=== PATIENT | female | born 1935 | race Caucasian/White ===

== ENCOUNTER 2016-11-28 15:03 | Outpatient (CLI) | payer MEDICARE | END 2016-11-28 15:04 | disposition home or self-care (01) | DX: Z12.31 Encounter for screening mammogram for malignant neoplasm of breast (principal); Z85.3 Personal history of malignant neoplasm of breast; Z80.3 Family history of malignant neoplasm of breast ==

== ENCOUNTER 2016-12-12 07:46 | Outpatient (CLI) | payer MEDICARE | END 2016-12-12 07:47 | disposition home or self-care (01) | DX: I10 Essential (primary) hypertension (principal); E78.5 Hyperlipidemia, unspecified; E11.8 Type 2 diabetes mellitus with unspecified complications ==

== ENCOUNTER 2016-12-22 07:24 | Outpatient (CLI) | payer MEDICARE | END 2016-12-22 07:25 | disposition home or self-care (01) | DX: K76.0 Fatty (change of) liver, not elsewhere classified (principal); R93.8 Abnormal findings on diagnostic imaging of other specified body structures; R74.8 Abnormal levels of other serum enzymes ==

== ENCOUNTER 2017-01-12 14:48 | Outpatient (CLI) | payer MEDICARE ==
[2017-01-12] MEDS ORDERED: IOPAMIDOL-300 50 ML VIAL PO ONE (17:24)
[2017-01-12] MEDS ORDERED: IOPAMIDOL-300 100 ML VIAL IVP ONE (17:24)
== END 2017-01-12 14:49 | disposition home or self-care (01) ==
DX: N28.1 Cyst of kidney, acquired (principal); K76.0 Fatty (change of) liver, not elsewhere classified
CPT/HCPCS: 74178; Q9967

== ENCOUNTER 2017-05-29 07:31 | Outpatient (CLI) | payer MEDICARE ==
[2017-05-29 16:14] LABS: ALBUMIN/GLOBULIN RATIO 1.2 (1.0-2.2); BILIRUBIN,TOTAL 0.5 mg/dL (0.2-1.0); BUN - BLOOD UREA NITROGEN 15 mg/dL (6-20); CALCIUM 8.7 mg/dL (8.5-10.3); CARBON DIOXIDE - CO2 29 mmol/L (21-32); CHLORIDE 96 mmol/L (101-111); CHOL/HDL RATIO 2.3 (<4.4); CHOLESTEROL 133 mg/dL; CREATININE 0.9 mg/dL (0.4-1.0); GFR - MDRD 60 (>89); GLUCOSE 96 mg/dL (70-100); HDL CHOLESTEROL 58 mg/dL; POTASSIUM 3.9 mmol/L (3.5-5.0); SODIUM 132 mmol/L (135-145); TOTAL PROTEIN 6.7 g/dL (6.7-8.2); TRIGLYCERIDES 83 mg/dL; VLDL CHOLESTEROL 17 mg/dL
[2017-05-29 16:45] LABS: HEMOGLOBIN A1C 0.58 g/dL
== END 2017-05-29 07:32 | disposition home or self-care (01) ==
LOC: LAB.WCP 07:31
PROVIDERS: ATTEND Family Medicine
DX: R74.8 Abnormal levels of other serum enzymes (principal); E78.5 Hyperlipidemia, unspecified; I10 Essential (primary) hypertension
CPT/HCPCS: 36415; 80053; 80061; 83036

== ENCOUNTER 2017-11-22 14:46 | Outpatient (CLI) | payer MEDICARE ==
[2017-11-22 13:44] LABS: EOSINOPHILS # (AUTO) 0.1 10^3/uL (0.0-0.7); EOSINOPHILS % (AUTO) 3.3 %; HGB - HEMOGLOBIN 12.4 g/dL (12.0-16.0); LYMPHOCYTES # (AUTO) 1.4 10^3/uL (1.5-3.5); LYMPHOCYTES % (AUTO) 31.9 %; MEAN CORPUSCULAR HGB CONC 33.8 g/dL (32.0-36.0); MEAN CORPUSCULAR VOLUME 88.8 fL (81.0-99.0); MEAN PLATELET VOLUME 8.1 fL (7.9-10.8); MONOCYTES # (AUTO) 0.6 10^3/uL (0.0-1.0); MONOCYTES % (AUTO) 12.6 %; NEUTROPHILS # (AUTO) 2.3 10^3/uL (1.5-6.6); NEUTROPHILS % (AUTO) 51.2 %; PLT - PLATELET COUNT 278 10^3/uL (130-450); RED BLOOD COUNT 4.11 10^6/uL (4.20-5.40); WHITE BLOOD COUNT 4.4 x10^3/uL (4.8-10.8)
[2017-11-22 14:19] LABS: THYROID STIMULATING HORMONE 6.61 uIU/mL (0.34-5.60)
[2017-11-22 14:24] LABS: ALBUMIN 3.7 g/dL (3.2-5.5); ALBUMIN/GLOBULIN RATIO 1.2 (1.0-2.2); ALKALINE PHOSPHATASE 62 IU/L (42-121); ALT ALANINE AMINOTRANSFERASE 69 IU/L (10-60); AST ASPARTATE AMINOTRANSFERASE 45 IU/L (10-42); BILIRUBIN,TOTAL 0.4 mg/dL (0.2-1.0); BUN - BLOOD UREA NITROGEN 18 mg/dL (6-20); CALCIUM 8.9 mg/dL (8.5-10.3); CARBON DIOXIDE - CO2 29 mmol/L (21-32); CHLORIDE 96 mmol/L (101-111); CHOL/HDL RATIO 4.1 (<4.4); CHOLESTEROL 256 mg/dL; CREATININE 0.9 mg/dL (0.4-1.0); GFR - MDRD 60 (>89); GLUCOSE 93 mg/dL (70-100); HDL CHOLESTEROL 62 mg/dL; LDL CHOLESTEROL,CALCULATED 168 mg/dL; LDL/HDL RATIO 2.7 (<4.4); SODIUM 132 mmol/L (135-145); TOTAL PROTEIN 6.8 g/dL (6.7-8.2); VLDL CHOLESTEROL 26 mg/dL
[2017-11-22 15:16] LABS: FREE T4 (FREE THYROXINE) 0.79 ng/dL (0.58-1.64)
[2017-11-22 16:36] LABS: HEMOGLOBIN A1C 0.6 g/dL; HEMOGLOBIN A1C % 6.4 % (4.6-6.2)
== END 2017-11-22 14:47 | disposition home or self-care (01) ==
LOC: LAB.WCP 14:46
PROVIDERS: ATTEND Family Medicine
DX: E78.5 Hyperlipidemia, unspecified (principal); I10 Essential (primary) hypertension
CPT/HCPCS: 36415; 80053; 80061; 83036; 84439; 84443; 85025

== ENCOUNTER 2017-12-26 09:55 | Outpatient (CLI) | payer MEDICARE ==
--- NOTE | 2017-12-27 17:26 | Mammography Report ---
DIGITAL SCREENING MAMMOGRAM: 12/26/2017 CLINICAL INDICATION: An 82-year-old with history of late childbearing, family history of breast cancer, personal history of left breast cancer, status post lumpectomy. COMPARISON: 11/2016, 04/2015, 08/2014, 02/2014, 07/2013, 01/2013, 07/2012, 11/2011, 04/2011. TECHNIQUE: Routine CC and MLO projections were obtained of the breasts. FINDINGS: The breasts demonstrate scattered fibroglandular densities bilaterally. Postoperative and posttreatment changes in the left breast are stable. No suspicious masses, clustered microcalcifications, or regions of architectural distortion are identified. Coarse, typically benign calcifications are present. IMPRESSION: BENIGN FINDINGS. RECOMMENDATION: ROUTINE ANNUAL SCREENING UNLESS OTHERWISE CLINICALLY INDICATED. BIRADS CATEGORY 2-BENIGN FINDINGS. STANDARD QUALIFYING STATEMENTS: 1. This examination was reviewed with the aid of Computer-Aided Detection (CAD). 2. A negative or benign imaging report should not delay biopsy if clinically suspicious findings are present. Consider surgical consultation if warranted. More than 5% of cancers are not identified by imaging. 3. Dense breasts may obscure an underlying neoplasm. TD: 12/27/2017 17:25
== END 2017-12-26 09:56 | disposition home or self-care (01) ==
LOC: DI 09:55
PROVIDERS: ATTEND Family Medicine
DX: Z12.31 Encounter for screening mammogram for malignant neoplasm of breast (principal); Z85.3 Personal history of malignant neoplasm of breast; Z80.3 Family history of malignant neoplasm of breast
CPT/HCPCS: 77067

== ENCOUNTER 2018-02-19 07:58 | Outpatient (CLI) | payer MEDICARE ==
[2018-02-19 12:58] LABS: THYROID STIMULATING HORMONE 6.58 uIU/mL (0.34-5.60)
[2018-02-19 13:01] LABS: % IRON SATURATION 17 % (20-50); ALBUMIN 3.7 g/dL (3.2-5.5); ALKALINE PHOSPHATASE 61 IU/L (42-121); ALT ALANINE AMINOTRANSFERASE 62 IU/L (10-60); AST ASPARTATE AMINOTRANSFERASE 38 IU/L (10-42); BILIRUBIN,TOTAL 0.5 mg/dL (0.2-1.0); BUN - BLOOD UREA NITROGEN 11 mg/dL (6-20); CALCIUM 8.9 mg/dL (8.5-10.3); CARBON DIOXIDE - CO2 28 mmol/L (21-32); CHLORIDE 96 mmol/L (101-111); CREATININE 0.7 mg/dL (0.4-1.0); GFR - MDRD 80 (>89); GLUCOSE 83 mg/dL (70-100); IRON 61 ug/dL (28-170); SODIUM 132 mmol/L (135-145); TOTAL IRON BINDING CAPACITY 349 ug/dL (250-450); TOTAL PROTEIN 7.3 g/dL (6.7-8.2); TRANSFERRIN 249 mg/dL (192-382)
[2018-02-19 13:15] LABS: HB2 TOTAL 13.4 g/dL; HEMOGLOBIN A1C 0.6 g/dL; HEMOGLOBIN A1C % 6.2 % (4.6-6.2)
[2018-02-19 14:05] LABS: FREE T4 (FREE THYROXINE) 0.86 ng/dL (0.58-1.64)
[2018-02-20 12:54] LABS: HEPATITIS C ANTIBODY NON-REACTIVE (NON-REACTIVE)
== END 2018-02-19 07:59 | disposition home or self-care (01) ==
LOC: LAB.WCP 07:58
PROVIDERS: ATTEND Family Medicine
DX: R74.8 Abnormal levels of other serum enzymes (principal); I10 Essential (primary) hypertension; E11.9 Type 2 diabetes mellitus without complications; E03.9 Hypothyroidism, unspecified
CPT/HCPCS: 36415; 80053; 83036; 83540; 84439; 84443; 84466; 86317; 86803

== ENCOUNTER 2018-10-08 07:49 | Outpatient (CLI) | payer MEDICARE ==
[2018-10-08 16:41] LABS: BASOPHILS % (AUTO) 0.9 %; EOSINOPHILS # (AUTO) 0.1 10^3/uL (0.0-0.7); EOSINOPHILS % (AUTO) 2.4 %; HGB - HEMOGLOBIN 12.7 g/dL (12.0-16.0); LYMPHOCYTES # (AUTO) 1.1 10^3/uL (1.5-3.5); LYMPHOCYTES % (AUTO) 33.6 %; MEAN CORPUSCULAR HEMOGLOBIN 29.9 pg (27.0-31.0); MEAN CORPUSCULAR HGB CONC 33.3 g/dL (32.0-36.0); MEAN CORPUSCULAR VOLUME 89.8 fL (81.0-99.0); MONOCYTES # (AUTO) 0.6 10^3/uL (0.0-1.0); MONOCYTES % (AUTO) 17.2 %; NEUTROPHILS # (AUTO) 1.5 10^3/uL (1.5-6.6); NEUTROPHILS % (AUTO) 45.9 %; PLT - PLATELET COUNT 268 10^3/uL (130-450); RED BLOOD COUNT 4.26 10^6/uL (4.20-5.40); RED CELL DISTRIBUTION WIDTH 14.6 % (12.0-15.0); WHITE BLOOD COUNT 3.4 x10^3/uL (4.8-10.8)
[2018-10-08 16:55] LABS: ALBUMIN 3.9 g/dL (3.2-5.5); ALBUMIN/GLOBULIN RATIO 1.1 (1.0-2.2); ALKALINE PHOSPHATASE 69 IU/L (42-121); ALT ALANINE AMINOTRANSFERASE 51 IU/L (10-60); AST ASPARTATE AMINOTRANSFERASE 37 IU/L (10-42); BILIRUBIN,TOTAL 0.7 mg/dL (0.2-1.0); BUN - BLOOD UREA NITROGEN 12 mg/dL (6-20); CALCIUM 8.9 mg/dL (8.5-10.3); CARBON DIOXIDE - CO2 29 mmol/L (21-32); CHLORIDE 95 mmol/L (101-111); CHOL/HDL RATIO 4.7 (<4.4); CHOLESTEROL 255 mg/dL; CREATININE 0.8 mg/dL (0.4-1.0); GFR - MDRD 68 (>89); GLUCOSE 115 mg/dL (70-100); HDL CHOLESTEROL 54 mg/dL; LDL CHOLESTEROL,CALCULATED 174 mg/dL; LDL/HDL RATIO 3.2 (<4.4); SODIUM 128 mmol/L (135-145); TOTAL PROTEIN 7.4 g/dL (6.7-8.2); VLDL CHOLESTEROL 27 mg/dL
[2018-10-08 17:09] LABS: HB2 TOTAL 13.5 g/dL; HEMOGLOBIN A1C 0.73 g/dL; HEMOGLOBIN A1C % 7.1 % (4.6-6.2)
== END 2018-10-08 23:59 | disposition home or self-care (01) ==
LOC: LAB.WCP 07:49
PROVIDERS: ATTEND Family Medicine
DX: E78.5 Hyperlipidemia, unspecified (principal); E11.9 Type 2 diabetes mellitus without complications; E03.9 Hypothyroidism, unspecified; I10 Essential (primary) hypertension
CPT/HCPCS: 36415; 80053; 80061; 83036; 83721; 84443; 85025

== ENCOUNTER 2018-11-06 09:39 | Outpatient (CLI) | payer MEDICARE ==
[2018-11-06 13:09] LABS: CALCIUM 8.9 mg/dL (8.5-10.3); CREATININE 0.8 mg/dL (0.4-1.0)
== END 2018-11-06 23:59 | disposition home or self-care (01) ==
LOC: LAB.WCP 09:39
PROVIDERS: ATTEND Family Medicine
DX: E87.1 Hypo-osmolality and hyponatremia (principal)
CPT/HCPCS: 36415; 80048

== ENCOUNTER 2019-02-04 08:00 | Outpatient (CLI) | payer MEDICARE ==
[2019-02-04 13:57] LABS: BASOPHILS % (AUTO) 1.2 %; EOSINOPHILS # (AUTO) 0.1 10^3/uL (0.0-0.7); EOSINOPHILS % (AUTO) 2.1 %; HGB - HEMOGLOBIN 12.5 g/dL (12.0-16.0); LYMPHOCYTES # (AUTO) 1.1 10^3/uL (1.5-3.5); LYMPHOCYTES % (AUTO) 31.3 %; MEAN CORPUSCULAR HEMOGLOBIN 30.4 pg (27.0-31.0); MEAN CORPUSCULAR HGB CONC 34.5 g/dL (32.0-36.0); MEAN PLATELET VOLUME 8.1 fL (7.9-10.8); MONOCYTES # (AUTO) 0.6 10^3/uL (0.0-1.0); MONOCYTES % (AUTO) 18.3 %; NEUTROPHILS # (AUTO) 1.6 10^3/uL (1.5-6.6); NEUTROPHILS % (AUTO) 47.1 %; PLT - PLATELET COUNT 249 10^3/uL (130-450); RED BLOOD COUNT 4.11 10^6/uL (4.20-5.40); RED CELL DISTRIBUTION WIDTH 14.9 % (12.0-15.0); WHITE BLOOD COUNT 3.5 x10^3/uL (4.8-10.8)
[2019-02-04 14:18] LABS: ALBUMIN 3.5 g/dL (3.2-5.5); ALKALINE PHOSPHATASE 64 IU/L (42-121); ALT ALANINE AMINOTRANSFERASE 42 IU/L (10-60); AST ASPARTATE AMINOTRANSFERASE 30 IU/L (10-42); BILIRUBIN,TOTAL 0.4 mg/dL (0.2-1.0); BUN - BLOOD UREA NITROGEN 15 mg/dL (6-20); CALCIUM 8.8 mg/dL (8.5-10.3); CARBON DIOXIDE - CO2 28 mmol/L (21-32); CHLORIDE 95 mmol/L (101-111); CHOLESTEROL 257 mg/dL; CREATININE 0.9 mg/dL (0.4-1.0); GFR - MDRD 60 (>89); GLUCOSE 109 mg/dL (70-100); HDL CHOLESTEROL 51 mg/dL; LDL CHOLESTEROL,CALCULATED 186 mg/dL; LDL/HDL RATIO 3.6 (<4.4); SODIUM 130 mmol/L (135-145); TOTAL PROTEIN 7.1 g/dL (6.7-8.2); VLDL CHOLESTEROL 20 mg/dL
[2019-02-04 14:54] LABS: HEMOGLOBIN A1C 0.71 g/dL; HEMOGLOBIN A1C % 7.1 % (4.6-6.2)
== END 2019-02-04 23:59 | disposition home or self-care (01) ==
LOC: LAB.WCP 08:00
PROVIDERS: ATTEND Family Medicine
DX: E78.5 Hyperlipidemia, unspecified (principal); E11.9 Type 2 diabetes mellitus without complications; E03.9 Hypothyroidism, unspecified; I10 Essential (primary) hypertension
CPT/HCPCS: 36415; 80053; 80061; 83036; 83721; 84443; 85025

== ENCOUNTER 2019-04-25 08:00 | Outpatient (CLI) | payer MEDICARE ==
[2019-04-25 12:45] LABS: BASOPHILS # (AUTO) 0.1 10^3/uL (0.0-0.1); BASOPHILS % (AUTO) 1.8 %; EOSINOPHILS # (AUTO) 0.1 10^3/uL (0.0-0.7); EOSINOPHILS % (AUTO) 1.8 %; HGB - HEMOGLOBIN 12.5 g/dL (12.0-16.0); LYMPHOCYTES # (AUTO) 1.2 10^3/uL (1.5-3.5); LYMPHOCYTES % (AUTO) 30.6 %; MEAN CORPUSCULAR HEMOGLOBIN 29.8 pg (27.0-31.0); MEAN CORPUSCULAR HGB CONC 33.2 g/dL (32.0-36.0); MEAN CORPUSCULAR VOLUME 89.8 fL (81.0-99.0); MEAN PLATELET VOLUME 8.4 fL (7.9-10.8); MONOCYTES # (AUTO) 0.5 10^3/uL (0.0-1.0); MONOCYTES % (AUTO) 12.8 %; NEUTROPHILS # (AUTO) 2.1 10^3/uL (1.5-6.6); PLT - PLATELET COUNT 238 10^3/uL (130-450); RED BLOOD COUNT 4.21 10^6/uL (4.20-5.40); RED CELL DISTRIBUTION WIDTH 14.3 % (12.0-15.0)
[2019-04-25 13:22] LABS: ALBUMIN 3.6 g/dL (3.2-5.5); ALKALINE PHOSPHATASE 59 IU/L (42-121); ALT ALANINE AMINOTRANSFERASE 33 IU/L (10-60); AST ASPARTATE AMINOTRANSFERASE 26 IU/L (10-42); BILIRUBIN,TOTAL 0.6 mg/dL (0.2-1.0); BUN - BLOOD UREA NITROGEN 22 mg/dL (6-20); CALCIUM 9.1 mg/dL (8.5-10.3); CARBON DIOXIDE - CO2 27 mmol/L (21-32); CHLORIDE 100 mmol/L (101-111); CHOL/HDL RATIO 4.6 (<4.4); CHOLESTEROL 233 mg/dL; CREATININE 0.9 mg/dL (0.4-1.0); GFR - MDRD 60 (>89); GLUCOSE 116 mg/dL (70-100); HDL CHOLESTEROL 51 mg/dL; LDL CHOLESTEROL,CALCULATED 158 mg/dL; LDL/HDL RATIO 3.1 (<4.4); SODIUM 136 mmol/L (135-145); TOTAL PROTEIN 7.2 g/dL (6.7-8.2); VLDL CHOLESTEROL 24 mg/dL
== END 2019-04-25 08:01 | disposition home or self-care (01) ==
LOC: LAB.WCP 08:00
PROVIDERS: ATTEND Family Medicine
DX: E87.1 Hypo-osmolality and hyponatremia (principal); E78.5 Hyperlipidemia, unspecified; I10 Essential (primary) hypertension
CPT/HCPCS: 36415; 80053; 80061; 83721; 85025

== ENCOUNTER 2021-01-05 09:46 | Outpatient (CLI) | payer MEDICARE ==
--- NOTE | 2021-01-07 16:47 | Mammography Report ---
BILATERAL DIGITAL DIAGNOSTIC MAMMOGRAM 3D/2D: 01/05/2021 CLINICAL: Left breast infection. Routine screening, personal history of left breast cancer. Comparison is made to exams dated: 12/26/2017 mammogram, 11/28/2016 mammogram, 04/22/2015 mammogram, 09/11 mammogram, 03/18/2014 mammogram, and 07/30/2013 mammogram - [facility]. The ti ssue of both breasts is predominantly fatty. There are benign calcifications in both breasts. There also are benign post operative findings in th e left breast. There is a mole marker in the left breast at 7 o'clock posterior depth at a site of a superficial ski n lesion. No other significant masses, calcifications, or other findings are seen in either breast. IMPRESSION: INCOMPLETE: NEEDS ADDITIONAL IMAGING EVALUATION Recommend US. US will be performed and dictated separately. This exam was interpreted at Station ID: [id number]. NOTE: For mammograms, a report in lay terms will be sent to the patient. Approximately 15% of breast malignancies will not be visualized mammographically. In the management of a palpable breast mass, a negative mammogram must not discourage biopsy of a clinically suspicious lesion. Electronically Signed By: Brenden Castorena acr/:01/05/2021 11:52:27 ACR BI-RADS Category 0: Incomplete 3340F PARENCHYMAL PATTERN: (F) - The breast(s) demonstrate(s) diffuse fatty replacement. BI-RADS CATEGORY: (0) - 0 Ultrasound [id number] Immediate follow-up LATERALITY: (B)
--- NOTE | 2021-01-07 16:47 | Ultrasound Report ---
LIMITED ULTRASOUND OF LEFT BREAST: 01/05/2021 CLINICAL: Focal left breast pain. Infection left breast. Comparison is made to exams dated: 01/05/2021 mammogram, 12/26/2017 mammogram, 11/28/2016 mammogram, 2014 mammogram, 03/18/2014 mammogram, and 07/30/2013 mammogram - [facility]. Color flow ultrasound of the left breast 7 o'clock region was performed. Tobin scale images of the re al-time examination were reviewed. There is a 0.7 cm x 0.2 cm x 0.9 cm lesion which is oval and has hyperecchoic foci likely air in the left breast at 7 o'clock posterior depth 7 cm from the nipple. IMPRESSION: PROBABLY BENIGN The 0.7 cm x 0.2 cm x 0.9 cm cyst in the left breast is possibly a benign sebacious cyst. It is confi kerry to the skin. It should be visible to the eye and if it has suspicious features to suggest a skin neoplasm such as a basal cell carcinoma or melanoma recommend referral to a elderly sitter. Otherwise a follow-up ultrasound in 1 month is recommended to ensure resolution. This exam was interpreted at Station ID: [id number]. Electronically Signed By: Brenden Castorena acr/:01/05/2021 14:21:07 Ultrasound BI-RADS: 3 Probably benign BI-RADS CATEGORY: (3) - 3 Ultrasound [id number] 1 month follow-up LATERALITY: (B)
== END 2021-01-05 09:47 | disposition home or self-care (01) ==
LOC: DI 09:46
PROVIDERS: ATTEND Physician Assistant Medical
DX: N61.0 Mastitis without abscess (principal); N60.02 Solitary cyst of left breast
CPT/HCPCS: 76642; 77066; G0279

== ENCOUNTER 2021-02-02 09:58 | Outpatient (CLI) | payer MEDICARE ==
--- NOTE | 2021-02-03 15:07 | Ultrasound Report ---
LIMITED ULTRASOUND OF LEFT BREAST: 02/02/2021 CLINICAL: Patient returns for short term follow-up of a mass in the left breast. Comparison is made to exams dated: 01/05/2021 ultrasound, 01/05/2021 mammogram, 12/26/2017 mammogram, 11/28/2016 mammogram, 04/22/2015 mammogram, and 09/11/2014 mammogram - [facility]. Color flow ultrasound of the left breast 7 o'clock region was performed. Tobin scale images of the r eal-time examination were reviewed. There is a skin lesion on the left breast at 7 o'clock that is not significantly changed in morpholog y and correlates with area of clinical concern. No suspicious underlying changes. IMPRESSION: NEGATIVE The lesion confined to the dermal layer is not changed. There is no sonographic evidence of breast ma lignancy. Return to annual mammogram screening schedule is recommended. Clinical follow up with dermatology if the lesion has a concerning appearance is recommended. Findings and recommendations were conveyed to the patient at time of exam. This exam was interpreted at Station ID: [id number]. Electronically Signed By: Ameena echeverria/:02/02/2021 11:36:17 Ultrasound BI-RADS: 1 Negative BI-RADS CATEGORY: (1) - 1 RECOMMENDATION: (ANNUAL) - Recommend routine annual screening mammography. [id number] return to screening LATERALITY: (B)
== END 2021-02-02 09:59 | disposition home or self-care (01) ==
LOC: DI 09:58
PROVIDERS: ATTEND Family Medicine
DX: R92.2 Inconclusive mammogram (principal); L98.9 Disorder of the skin and subcutaneous tissue, unspecified

== ENCOUNTER 2022-09-29 10:25 | Outpatient (CLI) | payer MEDICARE ==
--- NOTE | 2022-09-29 16:42 | Mammography Report ---
BILATERAL DIGITAL DIAGNOSTIC MAMMOGRAM 3D/2D: 09/29/2022 CLINICAL: Palpable left breast lump by physician. Personal history of left breast cancer. Comparison is made to exams dated: 01/05/2021 mammogram, 12/26/2017 mammogram, 11/28/2016 mammogram, 2014 mammogram, 09/11/2014 mammogram, and 03/18/2014 mammogram - [facility]. There are scattered areas of fibroglandular density in both breasts (category b / 25%-50% glandular t issue). There is a new 6 mm round low density asymmetry with an obscured and circumscribed margin in the left breast at 12 o'clock anterior depth. There also is a 2 cm oval fat necrosis with coarse dystrophic rim calcifications in the left breast a t 1 o'clock anterior depth. This is not significantly changed and correlates as palpated. There are surgical clips associated with the fat necrosis. No other significant masses, calcifications, or other findings are seen in either breast. IMPRESSION: INCOMPLETE: NEEDS ADDITIONAL IMAGING EVALUATION The new 6 mm round low density asymmetry in the left breast at 12 o'clock anterior depth most likely is a cyst or post operative fat necrosis but remains indeterminate. An ultrasound is recommended. T his was performed immediately following this exam. The 2 cm oval fat necrosis in the left breast at 1 o'clock anterior depth correlates to the palpable abnormality, is consistent with a previous surgery and is benign. This exam was interpreted at Station ID: [id number]. NOTE: For mammograms, a report in lay terms will be sent to the patient. Approximately 15% of breast malignancies will not be visualized mammographically. In the management of a palpable breast mass, a negative mammogram must not discourage biopsy of a clinically suspicious lesion. Electronically Signed By: Ameena echeverria/:09/29/2022 11:40:04 ACR BI-RADS Category 0: Incomplete 3340F PARENCHYMAL PATTERN: (A) - The breast(s) demonstrate(s) scattered fibroglandular densities. BI-RADS CATEGORY: (0) - 0 Mammo and [place] [id number] Immediate follow-up LATERALITY: (B)
--- NOTE | 2022-09-29 16:42 | Ultrasound Report ---
LIMITED ULTRASOUND OF LEFT BREAST: 09/29/2022 CLINICAL: Patient returns today to evaluate a focal asymmetry in the left breast. Palpable left breas t lump by physician. Comparison is made to exams dated: 09/29/2022 mammogram, 02/02/2021 ultrasound, 01/05/2021 ultrasound, 01/05/2021 mammogram, 12/26/2017 mammogram, and 11/28/2016 mammogram - [facility]. Color flow and real-time ultrasound of the left breast 12 o'clock region were performed. Tobin scale images of the real-time examination were reviewed. There is a 1.9 cm x 2.3 cm x 1.3 cm calcified mass in the left breast at 1 o'clock anterior depth 1 c m from the nipple. This is post surgical fat necrosis, and correlates as palpated and with mammograp hy findings. There is a 0.6 cm x 0.5 cm x 0.3 cm oval area of probable fibroglandular tissue with a circumscribed margin in the left breast at 12 o'clock anterior depth 1 cm from the nipple. This correlates with ma mmography findings. Color flow imaging demonstrates that there is no vascularity present. IMPRESSION: PROBABLY BENIGN The 1.9 cm x 2.3 cm x 1.3 cm mass in the left breast at 1 o'clock anterior depth correlates to the pa lpable abnormality, is consistent with post operative fat necrosis and is benign. The 0.6 cm x 0.5 cm x 0.3 cm oval area of tissue in the left breast at 12 o'clock anterior depth most likely is a lymph node or focal glandular tissue, and is probably benign. A follow-up left mammogram in 6 months is recommended to demonstrate stability of the second finding, particularly given patient history of breast cancer and the proximity of this new finding to the ope rative bed. Findings and recommendations were conveyed to the patient at time of exam. This exam was interpreted at Station ID: [id number]. Electronically Signed By: Ameena echeverria/:09/29/2022 12:14:15 Ultrasound BI-RADS: 3 Probably benign BI-RADS CATEGORY: (3) - 3 Mammogram [id number] 6 month follow-up LATERALITY: (L)
== END 2022-09-29 10:26 | disposition home or self-care (01) ==
LOC: DI 10:25
PROVIDERS: ATTEND Family Medicine
DX: N64.1 Fat necrosis of breast (principal); R92.8 Other abnormal and inconclusive findings on diagnostic imaging of breast; Z85.3 Personal history of malignant neoplasm of breast

== ENCOUNTER 2023-05-24 12:23 | Outpatient (CLI) | payer MEDICARE ==
--- NOTE | 2023-05-25 12:08 | Mammography Report ---
UNILATERAL LEFT DIGITAL DIAGNOSTIC MAMMOGRAM 3D/2D: 05/24/2023 CLINICAL: Patient returns for a 6 month follow up of the left breast. Comparison is made to exams dated: 09/29/2022 mammogram, 01/05/2021 ultrasound, 01/05/2021 mammogram, 12/26/2017 mammogram, and 11/28/2016 mammogram - [facility]. There are scattered areas of fibroglandular density in the left breast (category b / 25%-50% glandula r tissue). There is a stable round focal asymmetry in the left breast at 12 o'clock anterior depth. There also is a benign 2 cm oval fat necrosis with coarse dystrophic rim calcifications in the left b reast at 1 o'clock anterior depth. This is not significantly changed. There are surgical clips asso ciated with the fat necrosis. No other significant masses or calcifications are seen in the breast. IMPRESSION: INCOMPLETE: NEEDS ADDITIONAL IMAGING EVALUATION The stable 6 mm round focal asymmetry in the left breast at 12 o'clock anterior depth is indeterminat e. An ultrasound is recommended. Patient declined the recommended ultrasound today. She is due for bilateral mammogram in Sep 2023. This exam was interpreted at Station ID: [id number]. NOTE: For mammograms, a report in lay terms will be sent to the patient. Approximately 15% of breast malignancies will not be visualized mammographically. In the management of a palpable breast mass, a negative mammogram must not discourage biopsy of a clinically suspicious lesion. Electronically Signed By: Parish Johns M.D. lc/:05/24/2023 13:08:15 ACR BI-RADS Category 0: Incomplete 3340F PARENCHYMAL PATTERN: (A) - The breast(s) demonstrate(s) scattered fibroglandular densities. BI-RADS CATEGORY: (0) - 0 Ultrasound [id number] Immediate follow-up LATERALITY: (B)
== END 2023-05-24 12:24 | disposition home or self-care (01) ==
LOC: DI 12:23
PROVIDERS: ATTEND Family Medicine
DX: R92.8 Other abnormal and inconclusive findings on diagnostic imaging of breast (principal)